=== PATIENT | male | born 1950 | race Caucasian/White ===

== ENCOUNTER 2018-08-11 05:07 | Day surgery (SDC) | payer OTHER ==
[~2018-08-11] VITALS: Ht 165.1 cm; Wt 93.9 kg
--- NOTE | ~2018-08-11 | PN ---
PATIENT:ANDIE JOHNSTON MEDICAL RECORD: [id number] LOCATION:[facility] ADMISSION DATE: 08/11/18 PROGRESS NOTE DATE OF SERVICE: 08/11/2018 SUBJECTIVE: I saw the patient preoperatively. The patient has a lung malignancy, also what appears to be a fairly large lesion on the dorsal aspect of the right forearm. There is a significant amount of surrounding erythema as well with induration. This may represent a wide margin. I am uncertain whether we will be able to close his forearm primarily or whether it will require a skin graft. His tissues are friable and the wide excision will have to be large. This may preclude primary closure. I have contacted Dr. Santizo by phone. She confirmed that they would like to have a subcutaneous port and vascular catheter placed for chemotherapy due to the patient's lung cancer. The risks, possible complications, and alternatives to procedure were explained to the patient. He elects to proceed. TRANSINT:[id number] Voice Confirmation ID: [id number] DOCUMENT ID: [id number] GIANA ARMSTRONG MD at 1645 CC: CHETAN PATTERSON MD, GIANA LOCO MD, BRIAN BLUE MD and [id number] L DICTATION DATE: 08/11/18 1326 CAPONIZER: 08/11/18 1349 [facility] 08/11/18 [id number] [place] [address]
--- NOTE | ~2018-08-11 | OP ---
PATIENT NAME: ANDIE JOHNSTON MEDICAL RECORD: [id number] :46 LOCATION:D[facility] ADMISSION DATE: SURGEON: GIANA ARMSTRONG MD DATE OF OPERATION: 08/11/2018 PREOPERATIVE DIAGNOSES: 1. Lung cancer in need of a port and vascular catheter for IV chemotherapy. 2. Right forearm skin lesion, large, likely a malignancy. POSTOPERATIVE DIAGNOSES: 1. Lung cancer in need of a port and vascular catheter for IV chemotherapy. 2. Right forearm skin lesion, large, likely a malignancy. Please see the dimensions below. PROCEDURES: 1. Placement of a left infraclavicular PowerPort under fluoroscopic guidance. 2. Immediate surgeon interpretation of the fluoroscopic images. 3. Wide excision of 2.2 x 2.3 cm raised basal cell carcinoma of the mid forearm. The area of induration and erythema around this lesion was 6.8 x 7.2 cm. The excised defect was 7.4 x 4.8 cm and this was an intermediate closure. SURGEON: Giana Armstrong MD LUNCHROOM SUPERVISOR: None. BLOOD LOSS: 150 cc. ANESTHESIA: Right upper extremity block by the anesthesia staff as well as local with sedation. General anesthesia was avoided as the patient has a significant cardiac history. COMPLICATIONS: None. The risks, possible complications, and alternatives to procedure were explained to the patient. He elects to proceed. The discussion specifically included, but was not limited to, bleeding requiring emergency reoperation, infection, possible need for a skin grafting, the possibility of a dehiscence of the arm wound, possibility of postoperative bleeding as the patient has been continued on Coumadin. No radiologist was present for this procedure. Static fluoroscopic images were obtained and are kept in the PACS system. The surgeon interpretation of the radiographic images is dictated within the body of this operative note. OPERATIVE COURSE: The patient was conveyed to operating room electively on 08/11/2018. The patient received right upper extremity block by the anesthesia staff as well as local with sedation. The left neck and left upper chest was sterilely prepped and draped. I percutaneously accessed the left internal jugular vein in an antegrade fashion easily. A guidewire passed easily. Under fluoroscopy, I could see the guidewire coursing down the left innominate vein through the superior vena cava. The skin incision was accomplished around the guidewire. A transverse incision was accomplished inferior to the left clavicle. I dissected down to the pectoralis fascia. A subcutaneous pocket was created in a caudad direction. Some of the subcutaneous adipose tissue was removed from the port to allow for easier access. I then tunneled the PowerPort OPERATIVE REPORT [id number] ANDIE JOHNSTON catheter from the chest incision to the neck incision. Over the wire, I dilated with a dilator sheath. The dilator and wire were removed. Through the sheath, the catheter was advanced. The Peel-Away sheath was then removed. The tip of the catheter appeared to be at the cavoatrial junction. The catheter was shortened. It was attached to the PowerPort. The locking device was firmly engaged. I placed a PowerPort into the subcutaneous pocket. A 3-point fixation utilizing 3-0 Prolenes was utilized. Meticulous hemostasis was achieved with electrocautery. As the patient has been on Coumadin, I also instilled a powdered hemostatic agent into the subcutaneous pocket. I accessed the port. It accessed easily. It aspirated dark, nonpulsatile blood. It also flushed easily with a heparinized saline. The neck incision was closed with a single intracuticular 3-0 Vicryl. The port pocket was closed with interrupted 3-0 Vicryls for the deep dermis as well as a running intracuticular 3-0 Vicryl for the skin. Sterile dressings were applied. An image was obtained over the mediastinum. It revealed that the PowerPort catheter tip appeared to be at the cavoatrial junction. Another image was obtained over the left lung apex and there appeared to have been no radiographic evidence of complication. No kinking or twisting of the PowerPort catheter. Attention was then turned to the right upper extremity. Measurements were obtained. They are listed above. Through the use of double curvilinear incisions, an axial excision of the mass and a generous margin were obtained. The mass and the margins were oriented and sent to pathology for frozen section. Frozen section diagnosis was that the margins were free of malignancy and that the malignancy was a basal cell cancer. Subcutaneous pockets were created sharply. Meticulous hemostasis was achieved with electrocautery. The excised defect was measured. The subcutaneous dermis was approximated with interrupted 2-0 Vicryls. The skin was approximated with multiple interrupted 2-0 nylons and 0 Prolenes in a vertical mattress fashion as well as a few horizontal mattress sutures. A sterile dressing was applied. The patient was then conveyed to the post-anesthesia care unit. [facility] There is no need for him to follow up with me in the office as I can see him on rounds out of the penitentiary. He is going to be a significant risk for wound dehiscence. He is going to be dismissed back to [facility]itent[facility] with a prescription for [place] 5.0 mg tablets #10. He needs to keep the extremity up above the level of his heart in order to prevent swelling and reduce the chance of a wound dehiscence. TRANSINT:[id number] Voice Confirmation ID: [id number] DOCUMENT ID: [id number] GIANA ARMSTRONG MD at 1403 CC: CHETAN PATTERSON MD, GIANA LOCO MD, BRIAN BLUE MD and [id number] L DICTATION DATE: 08/11/18 1428 CONT[facility] STITCHER: 08/11/18 1458 [facility] 08/11/18 [id number] [place] [address]
[2018-08-11] MEDS ORDERED: LIPITOR20 MG PO (06:19)
[2018-08-11] MEDS ORDERED: COREG6.25 MG PO (06:20)
[2018-08-11] MEDS ORDERED: FUROSEMIDE40 MG PO (06:20)
[2018-08-11] MEDS ORDERED: HYDROCHLOROTH12.5 M1 PO (06:21)
[2018-08-11] MEDS ORDERED: NORCO 5/325 TAB1 TAB PO (06:22)
[2018-08-11] MEDS ORDERED: COZAAR25 MG PO (06:23)
[2018-08-11] MEDS ORDERED: ISOSORBIDE MONO30 M1 PO (06:23)
[2018-08-11] MEDS ORDERED: K-DUR20 MEQ PO (06:24)
[2018-08-11] MEDS ORDERED: XOPENEX HFA15 GM INH (06:25)
[2018-08-11] MEDS ORDERED: COUMADIN5 MG PO (06:25)
[2018-08-11 06:43] VITALS: BP 110/63; Ht 165.1 cm; Wt 93.9 kg
[2018-08-11 07:01] LABS: BASOPHILS 0.2 % (0-2); EOSINOPHILS 5.1 % (0-7); HEMATOCRIT 33.6 % (42.0-54.0); HEMOGLOBIN 11.2 g/dL (13.5-17.5); IMMATURE GRANULOCYTES 0.2 % (0-5); LYMPHOCYTES 29.7 % (15-50); MCH 28.1 pg (26.0-34.0); MCHC 33.3 g/dL (31.0-37.0); MCV 84.2 fL (80.0-100.0); MEAN PLATELET VOLUME 11.6 fL (7.4-10.4); MONOCYTES 10.8 % (2-11); PLATELET COUNT 126 10x3/uL (130-400); RBC 3.99 10x6/uL (4.20-6.10); RDW 14.1 % (11.5-14.5); WBC 4.9 10x3/uL (4.8-10.8)
[2018-08-11 07:03] LABS: CALC OSMOLALITY 278 mosm/kg (275-300); CALCIUM 8.7 mg/dL (8.5-10.1); CARBON DIOXIDE 25.8 mmol/L (21.0-32.0); CHLORIDE - SERUM 104 mmol/L (98-107); CREATININE - SERUM 0.7 mg/dL (0.6-1.3); GLUCOSE 97 mg/dL (74-106); POTASSIUM - SERUM 3.8 mmol/L (3.5-5.1); SODIUM 139 mmol/L (136-145); UREA NITROGEN 14 mg/dL (7-18); eGFR NON AFRICAN AMERICAN > 90 mL/min (90-120)
[2018-08-11 07:08] LABS: APTT 35.9 SECONDS (22.8-39.4); INR 1.29 (0.85-1.17); PROTIME 15.7 SECONDS (11.6-15.0)
== END 2018-08-11 16:05 | disposition home or self-care (01) ==
LOC: D.OPS 05:07
PROVIDERS: Anesthesiology
DX: C34.90 Malignant neoplasm of unspecified part of unspecified bronchus or lung (principal); C44.612 Basal cell carcinoma of skin of right upper limb, including shoulder; Z79.01 Long term (current) use of anticoagulants; Z01.812 Encounter for preprocedural laboratory examination